=== PATIENT | male | born 1980 | race African-American/Black ===

== ENCOUNTER 2017-03-05 08:54 | Emergency (ER) | payer MEDICAID ==
[2017-03-05] MEDS ORDERED: LORazepam 2 MG/ML INJ IVP ONE (09:17)
[2017-03-05] MEDS ORDERED: NS 1,000 ML IV ONE (09:17)
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
[2017-03-05 10:20] VITALS: BP 186/109; PULSE 74; RESP 18; TEMP 99.3; O2SAT 97
== END 2017-03-05 10:38 | disposition home or self-care (01) ==
DX: F10.230 Alcohol dependence with withdrawal, uncomplicated (principal); I10 Essential (primary) hypertension; F17.200 Nicotine dependence, unspecified, uncomplicated
CPT/HCPCS: 96374; J2060

== ENCOUNTER 2018-07-09 01:27 | Emergency (ER) | payer SELFPAY ==
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
[2018-07-09 01:40] VITALS: BP 160/125
== END 2018-07-09 01:54 ==
LOC: MERGE 01:27 → EDBD 01:27
DX: S01.511A Laceration without foreign body of lip, initial encounter (principal); F10.129 Alcohol abuse with intoxication, unspecified; F12.929 Cannabis use, unspecified with intoxication, unspecified; Y04.8XXA Assault by other bodily force, initial encounter; Y92.039 Unspecified place in apartment as the place of occurrence of the external cause